=== PATIENT | female | born 1960 | race Caucasian/White ===

== ENCOUNTER 2017-08-18 14:30 | Inpatient (IN) | payer MEDICARE, OTHER ==
[~2017-08-18] VITALS: Ht 177.8 cm; Wt 82.6 kg
[2018-02-05] MEDS ORDERED: PARO40TA PO (12:23)
[2018-02-05] MEDS ORDERED: METO-482 PO (12:23)
[2018-04-30 15:03] VITALS: BP 183/94
[2018-04-30 15:35] LABS: APPEARANCE,URINE Clear (CLEAR); BILIRUBIN,URINE Small (NEGATIVE); COLOR,URINE Dark Yellow (YELLOW); GLUCOSE, URINE (UA) Negative (NEGATIVE); KETONES,URINE Trace mg/dL (NEGATIVE); LEUKOCYTE ESTERASE ,URINE Small (NEGATIVE); NITRATE,URINE Negative (NEGATIVE); OCCULT BLOOD,URINE Negative (NEGATIVE); PH,URINE 5.5 (5.0-8.0); PROTEIN,URINE POS 1+ (NEGATIVE)
[2018-04-30 15:49] LABS: BACTERIA,URINE Few /HPF (None Seen); RBC,URINE None Seen /HPF (0-1)
[2018-04-30] MEDS ORDERED: tylenol PO (16:20)
[2018-04-30] MEDS ORDERED: OXYC10TA58 PO (16:20)
[2018-04-30] MEDS ORDERED: OXCA300T46 PO (16:20)
[2018-05-03] VITALS (25 sets, daily range): BP systolic 116–179; BP diastolic 64–91
[2018-05-03] MEDS ORDERED: LACTATED RINGERS 1000ML 1,000 ML IV ONE (08:06)
[2018-05-03] MEDS ORDERED: TRANEXAMIC ACID 1000MG/10ML IV ONE (08:26)
[2018-05-03] MEDS ORDERED: CLINDAMYCIN PHOSPHATE 150 MG/ML 6ML VIAL ONE (08:26)
[2018-05-03] MEDS: CLINDAMYCIN 900 MG/D5% WATER 50 ML IV SCH ×2 (08:30→10:45)
[2018-05-03] MEDS ORDERED: METOCLOPRAMIDE 10 MG/2 ML VIAL ONE (08:32)
[2018-05-03] MEDS ORDERED: ACETAMINOPHEN EXTRA STRENGTH 500 MG TABLET ONE (08:33)
[2018-05-03] MEDS ORDERED: OXYCODONE HCL 10 MG TAB.SR.12H PO ONE (08:33)
[2018-05-03] MEDS ORDERED: KETOROLAC TROMETHAMINE 15MG/ML ONE (08:33)
[2018-05-03] MEDS: GENTAMICIN SULFATE 240 MG in SODIUM CHLORIDE 0.9% 100 ML IV SCH ×2 (08:55)
[2018-05-03] MEDS ORDERED: DEXAMETHASONE SOD PHOSPHATE 10MG/ML 1ML VIAL ONE (09:33)
[2018-05-03] MEDS ORDERED: LIDOCAINE PF 2% 5ML ABBOJECT ONE (09:33)
[2018-05-03] MEDS ORDERED: GLYCOPYRROLATE 0.2 MG/ML 5 ML VIAL ONE (09:33)
[2018-05-03] MEDS ORDERED: NEOSTIGMINE 5MG/5ML SYR IV ONE (09:33)
[2018-05-03] MEDS ORDERED: ONDANSETRON HCL 4 MG/2 ML VIAL ONE (09:33)
[2018-05-03] MEDS ORDERED: PROPOFOL 10 MG/ML 20ML VIAL IV ONE (09:35)
[2018-05-03] MEDS ORDERED: MIDAZOLAM HCL 1 MG/ML 2ML VIAL ONE (09:35)
[2018-05-03] MEDS ORDERED: FENTANYL CITRATE PF 50 MCG/1 ML 2ML VIAL ONE (09:35)
[2018-05-03] MEDS: SODIUM CHLORIDE 0.9% 1000ML 1,000 ML IV SCH (13:35)
[2018-05-03] MEDS ORDERED: KETOROLAC TROMETHAMINE 15MG/ML IV PRN (13:45)
[2018-05-03] MEDS: ACETAMINOPHEN EXTRA STRENGTH 500 MG TABLET PO SCH ×2 (13:45→19:59)
[2018-05-03] MEDS ORDERED: POTASSIUM CHLORIDE 10% ELIXIR 20 MEQ/15 ML UDCUP PO PRN (13:45)
[2018-05-03] MEDS ORDERED: CALCIUM CARBONATE 500 MG TABLET PO PRN (13:45)
[2018-05-03] MEDS ORDERED: FERROUS FUMARATE 324 MG TABLET PO PRN (13:45)
[2018-05-03] MEDS ORDERED: POTASSIUM CHLORIDE 20 MEQ ERTAB PO PRN (13:45)
[2018-05-03] MEDS ORDERED: POTASSIUM CHLORIDE 20MEQ/100ML 100 ML IV PRN (13:45)
[2018-05-03] MEDS ORDERED: LIDOCAINE HCL-MPF 1% 2ML VIAL IVP PRN (13:45)
[2018-05-03] MEDS ORDERED: OXYCODONE HCL 5 MG TAB PO PRN (13:45)
[2018-05-03] MEDS ORDERED: ONDANSETRON HCL 4 MG/2 ML VIAL IVP PRN (13:45)
[2018-05-03] MEDS ORDERED: TEMAZEPAM 15 MG CAPSULE PO PRN (13:45)
[2018-05-03] MEDS ORDERED: DiphenhydrAMINE HCL 50 MG/ML VIAL IVP PRN (13:45)
[2018-05-03] MEDS ORDERED: TRAMADOL HCL 50 MG TABLET PO PRN (13:45)
[2018-05-03] MEDS ORDERED: MEPERIDINE-PF 25 MG/ML SYG ONE (14:46)
[2018-05-03] MEDS ORDERED: HYDRALAZINE HCL 20 MG/ML VIAL ONE (14:52)
[2018-05-03] MEDS ORDERED: TYLENOL 500 MG PO PRN (16:00)
[2018-05-03] MEDS: CLINDAMYCIN 900 MG/D5% WATER 50 ML IVPB SCH (18:43)
[2018-05-03] MEDS: PREGABALIN 25 MG CAP PO SCH (19:59)
[2018-05-03] MEDS: FAMOTIDINE 20MG TAB 20 MG TAB PO SCH (19:59)
[2018-05-03] MEDS: OXCARBAZEPINE 300 MG TAB PO SCH (19:59)
[2018-05-03] MEDS: ASPIRIN 325 MG TABLET PO SCH (19:59)
[2018-05-03] MEDS: METOPROLOL TARTRATE 50 MG TAB PO SCH (19:59)
[2018-05-03] MEDS: OXYCODONE HCL 5 MG TAB PO PRN (20:10)
[2018-05-04 00:04] VITALS: BP 122/68
[2018-05-04] MEDS: CLINDAMYCIN 900 MG/D5% WATER 50 ML IVPB SCH (02:05)
[2018-05-04] MEDS: SODIUM CHLORIDE 0.9% 1000ML 1,000 ML IV SCH ×2 (02:05→09:37)
[2018-05-04 04:02] VITALS: BP 148/80
[2018-05-04 05:03] LABS: HEMATOCRIT 35.8 % (36-48); MEAN CORPUSCULAR HGB CONC 33.7 g/dL (32.0-36.0); MEAN CORPUSCULAR VOLUME 89.3 fL (79-99); PLATELET COUNT (AUTO) 334 K/uL (130-400); RED BLOOD CELL COUNT(AUTO) 4.01 MIL/uL (4.00-5.50); RED CELL DISTRIBUTION WIDTH 13.8 % (11.0-15.5); WHITE BLOOD COUNT (AUTO) 11.2 K/uL (4.8-10.8)
[2018-05-04 05:10] LABS: CREATININE 0.7 mg/dL (0.5-1.5); POTASSIUM 4.5 mmol/L (3.5-5.1)
[2018-05-04] MEDS: ACETAMINOPHEN EXTRA STRENGTH 500 MG TABLET PO SCH ×3 (05:26→21:20)
[2018-05-04 08:01] VITALS: BP 118/58
[2018-05-04] MEDS: PAROXETINE HCL 20 MG TABLET PO SCH (08:17)
[2018-05-04] MEDS: ASPIRIN 325 MG TABLET PO SCH ×2 (08:17→19:41)
[2018-05-04] MEDS: FAMOTIDINE 20MG TAB 20 MG TAB PO SCH ×2 (08:17→19:41)
[2018-05-04] MEDS: PREGABALIN 25 MG CAP PO SCH ×2 (08:17→19:41)
[2018-05-04] MEDS: POLYETHYLENE GLYCOL 3350 17 GM POWD.PACK PO SCH (08:18)
[2018-05-04] MEDS: METOPROLOL TARTRATE 50 MG TAB PO SCH ×2 (08:18→19:42)
[2018-05-04] MEDS: OXCARBAZEPINE 300 MG TAB PO SCH ×2 (08:18→19:41)
[2018-05-04] MEDS: OXYCODONE HCL 5 MG TAB PO PRN ×3 (08:19→22:32)
[2018-05-04] MEDS ORDERED: ACET-66 PO (09:34)
[2018-05-04] MEDS: ACETAMINOPHEN EXTRA STRENGTH 500 MG TABLET PO PRN ×2 (10:19→22:33)
[2018-05-04 12:22] VITALS: BP 140/63
[2018-05-04 16:37] VITALS: BP 158/82
[2018-05-04 20:04] VITALS: BP 147/80
[2018-05-05] VITALS (7 sets, daily range): BP systolic 102–156; BP diastolic 51–103
[2018-05-05] MEDS: ACETAMINOPHEN EXTRA STRENGTH 500 MG TABLET PO SCH ×2 (05:20→13:45)
[2018-05-05] MEDS: METOPROLOL TARTRATE 50 MG TAB PO SCH ×2 (09:00→19:54)
[2018-05-05] MEDS: PREGABALIN 25 MG CAP PO SCH ×2 (09:00→20:42)
[2018-05-05] MEDS: POLYETHYLENE GLYCOL 3350 17 GM POWD.PACK PO SCH (09:00)
[2018-05-05] MEDS: PAROXETINE HCL 20 MG TABLET PO SCH (09:00)
[2018-05-05] MEDS: OXCARBAZEPINE 300 MG TAB PO SCH ×2 (09:00→19:52)
[2018-05-05] MEDS: FAMOTIDINE 20MG TAB 20 MG TAB PO SCH ×2 (09:00→19:53)
[2018-05-05] MEDS: ASPIRIN 325 MG TABLET PO SCH ×2 (09:00→19:52)
[2018-05-05] MEDS: OXYCODONE HCL 5 MG TAB PO PRN (19:53)
[2018-05-05] MEDS: ACETAMINOPHEN EXTRA STRENGTH 500 MG TABLET PO PRN (19:53)
[2018-05-06] MEDS: OXYCODONE HCL 5 MG TAB PO PRN ×3 (00:16→10:24)
[2018-05-06] MEDS: ACETAMINOPHEN EXTRA STRENGTH 500 MG TABLET PO PRN ×2 (00:16→10:24)
[2018-05-06 03:00] VITALS: BP 128/69
[2018-05-06 08:02] VITALS: BP 155/79
[2018-05-06] MEDS ORDERED: PREG25 PO (08:06)
[2018-05-06] MEDS ORDERED: OXYC5 PO (08:06)
[2018-05-06] MEDS ORDERED: ASPI-1012 PO (08:06)
[2018-05-06] MEDS: PREGABALIN 25 MG CAP PO SCH (09:01)
[2018-05-06] MEDS: FAMOTIDINE 20MG TAB 20 MG TAB PO SCH (09:02)
[2018-05-06] MEDS: POLYETHYLENE GLYCOL 3350 17 GM POWD.PACK PO SCH (09:02)
[2018-05-06] MEDS: PAROXETINE HCL 20 MG TABLET PO SCH (09:02)
[2018-05-06] MEDS: METOPROLOL TARTRATE 50 MG TAB PO SCH (09:02)
[2018-05-06] MEDS: OXCARBAZEPINE 300 MG TAB PO SCH (09:02)
[2018-05-06] MEDS: ASPIRIN 325 MG TABLET PO SCH (09:02)
[2018-05-06] MEDS ORDERED: BISACODYL 10 MG SUPP.RECT RC PRN (13:45)
== END 2018-05-06 16:00 | DRG 470 ==
LOC: EDSTATUS 14:30 → DAHIP 05-03 08:00 → 4AH 05-03 14:44
PROVIDERS: ADMIT Orthopaedic Surgery; ATTEND Orthopaedic Surgery
PROC: 0SR901Z Replacement of Right Hip Joint with Metal Synthetic Substitute, Open Approach (ICD-10-PCS; principal; 2018-05-03 10:25)
DX: M16.11 Unilateral primary osteoarthritis, right hip (principal); N18.2 Chronic kidney disease, stage 2 (mild); I12.9 Hypertensive chronic kidney disease with stage 1 through stage 4 chronic kidney disease, or unspecified chronic kidney disease; F32.9 Major depressive disorder, single episode, unspecified; F41.9 Anxiety disorder, unspecified; G89.4 Chronic pain syndrome; Z83.3 Family history of diabetes mellitus; Z82.49 Family history of ischemic heart disease and other diseases of the circulatory system; Z85.841 Personal history of malignant neoplasm of brain
CPT/HCPCS: 36415; 73503; 80048; 81001; 85027; 88304; 88311; 96365; 96374; 96375; 97039; J0360; J1100; J1580; J1885; J2001; J2175; J2250; J2405; J2704; J2710; J2765; J3010; J3490; J7030; J7120

== ENCOUNTER 2018-02-08 11:12 | Observation (INO) | payer MEDICARE ==
[2018-02-05 11:53] VITALS: BP 167/85
[2018-02-05 12:02] LABS: BASOPHILS % (AUTO) 0.5 % (0.0-5.0); EOSINOPHILS % (AUTO) 2.6 % (0.0-8.0); HEMATOCRIT 42.4 % (36-48); MEAN CORPUSCULAR HEMOGLOBIN 30.5 pg (27.0-33.0); MEAN CORPUSCULAR HGB CONC 35.1 g/dL (32.0-36.0); MEAN CORPUSCULAR VOLUME 87.1 fL (79-99); MONOCYTES % (AUTO) 6.9 % (3.0-13.0); PLATELET COUNT (AUTO) 358 K/uL (130-400); RED BLOOD CELL COUNT(AUTO) 4.87 MIL/uL (4.00-5.50); RED CELL DISTRIBUTION WIDTH 13.5 % (11.0-15.5); WHITE BLOOD COUNT (AUTO) 8.7 K/uL (4.8-10.8)
[2018-02-05 12:08] LABS: CREATININE 0.8 mg/dL (0.5-1.5); POTASSIUM 3.5 mmol/L (3.5-5.1)
[2018-02-05] MEDS: CLINDAMYCIN 900 MG/D5% WATER 50 ML IV SCH (13:00)
[2018-02-08] VITALS (25 sets, daily range): BP systolic 112–184; BP diastolic 65–100
[~2018-02-08] VITALS: Ht 176.5 cm; Wt 85.1 kg
[~2018-02-08 11:12] MED LIST: ACET-2247 PO; METO-482 PO; OXYC10TA48 PO; PARO40TA PO
[2018-02-08] MEDS ORDERED: LACTATED RINGERS 1000ML 1,000 ML IV ONE (11:55)
[2018-02-08] MEDS ORDERED: BUPIVACAINE/PF 0.25% 30ML VIAL IJ ONE (13:16)
[2018-02-08] MEDS ORDERED: CLINDAMYCIN PHOSPHATE 150 MG/ML 6ML VIAL ONE ×2 (13:17→16:32)
[2018-02-08] MEDS ORDERED: MIDAZOLAM HCL 1 MG/ML 2ML VIAL ONE (13:26)
[2018-02-08] MEDS ORDERED: PROPOFOL 10 MG/ML 20ML VIAL IV ONE (13:26)
[2018-02-08] MEDS ORDERED: FENTANYL CITRATE PF 50 MCG/1 ML 5ML AMP IV ONE (13:26)
[2018-02-08] MEDS ORDERED: EPHEDRINE SULFATE 50 MG/ML AMPULE ONE (13:41)
[2018-02-08] MEDS: CLINDAMYCIN 900 MG/D5% WATER 50 ML IV SCH (13:47)
[2018-02-08] MEDS: BUPIVACAINE/EPI/PF 0.25% 30ML VIAL IJ ONE (17:30)
[2018-02-08] MEDS ORDERED: FENTANYL CITRATE PF 50 MCG/1 ML 2ML VIAL ONE ×2 (17:38→18:39)
[2018-02-08] MEDS ORDERED: TEMAZEPAM 15 MG CAPSULE PO PRN (18:00)
[2018-02-08] MEDS ORDERED: FERROUS FUMARATE 324 MG TABLET PO PRN (18:00)
[2018-02-08] MEDS ORDERED: CALCIUM CARBONATE 500 MG TABLET PO PRN (18:00)
[2018-02-08] MEDS ORDERED: DIPHENHYDRAMINE HCL 25 MG CAPSULE PO PRN (18:00)
[2018-02-08] MEDS ORDERED: PROMETHAZINE HCL 25 MG/ML 1ML AMPULE IM PRN (18:00)
[2018-02-08] MEDS ORDERED: DiphenhydrAMINE HCL 50 MG/ML VIAL IVP PRN (18:00)
[2018-02-08] MEDS ORDERED: MEPERIDINE-PF 25 MG/ML SYG ONE ×2 (18:19→18:29)
[2018-02-08] MEDS ORDERED: OXYCODONE HCL 20 MG TAB.SR.12H PO SCH (21:00)
[2018-02-08] MEDS ORDERED: ACETAMINOPHEN 325 MG TAB PO SCH (21:00)
[2018-02-08] MEDS: ASPIRIN 325 MG TABLET PO SCH (22:03)
[2018-02-09] MEDS: SODIUM CHLORIDE 0.9% 1000ML 1,000 ML IV SCH ×2 (00:01→13:30)
[2018-02-09] MEDS: METOPROLOL TARTRATE 50 MG TAB PO SCH ×2 (00:03→08:38)
[2018-02-09] MEDS: CLINDAMYCIN 900 MG/D5% WATER 50 ML IVPB SCH ×2 (00:04→06:20)
[2018-02-09] MEDS ORDERED: ACETAMINOPHEN 325 MG TAB ONE ×2 (00:30→13:27)
[2018-02-09] MEDS ORDERED: OXYCODONE HCL 10 MG TAB.SR.12H PO ONE (00:31)
[2018-02-09] MEDS: ACETAMINOPHEN 325 MG TAB PO PRN ×2 (00:35→13:23)
[2018-02-09 04:29] VITALS: BP 113/63
[2018-02-09 07:32] VITALS: BP 130/70
[2018-02-09] MEDS ORDERED: OXYCODONE HCL 5 MG TAB ONE ×2 (08:06→13:13)
[2018-02-09] MEDS: ASPIRIN 325 MG TABLET PO SCH (08:38)
[2018-02-09] MEDS: OXYCODONE HCL 5 MG TAB PO PRN ×2 (08:39→13:22)
[2018-02-09] MEDS ORDERED: OXYCODONE HCL 20 MG TAB.SR.12H PO SCH (09:00)
[2018-02-09] MEDS ORDERED: PAROXETINE HCL 20 MG TABLET PO SCH (09:00)
[2018-02-09] MEDS ORDERED: POLYETHYLENE GLYCOL 3350 17 GM POWD.PACK PO SCH (09:00)
[2018-02-09 11:03] VITALS: BP 108/54
[2018-02-09] MEDS ORDERED: PSYLLIUM SEED 1 EACH PACKET PO SCH (12:00)
[2018-02-10] MEDS ORDERED: BISACODYL 5 MG TABLET.DR PO PRN (18:00)
[2018-02-11] MEDS ORDERED: BISACODYL 10 MG SUPP.RECT RC PRN (18:00)
== END 2018-02-09 15:00 | disposition home or self-care (01) ==
LOC: DAH 11:12 → DAHIP 11:13 → 4AH 19:50
PROVIDERS: ADMIT Orthopaedic Surgery; ATTEND Orthopaedic Surgery
DX: S52.502P Unspecified fracture of the lower end of left radius, subsequent encounter for closed fracture with malunion (principal); G62.9 Polyneuropathy, unspecified; Z79.899 Other long term (current) drug therapy; F32.9 Major depressive disorder, single episode, unspecified; I10 Essential (primary) hypertension; I12.9 Hypertensive chronic kidney disease with stage 1 through stage 4 chronic kidney disease, or unspecified chronic kidney disease; N18.2 Chronic kidney disease, stage 2 (mild); Z85.841 Personal history of malignant neoplasm of brain; G89.4 Chronic pain syndrome; F41.9 Anxiety disorder, unspecified; X58.XXXD Exposure to other specified factors, subsequent encounter
CPT/HCPCS: 25405; 36415; 76000; 80048; 85025; 96365; 96375; A4649 ×3; A4930 ×3; A6223; C1713; C1776; G0378 ×28; J2175 ×2; J2250; J2704; J3010 ×3; J3490 ×5; J7030; J7120 ×2; Q4050; Q4051

== ENCOUNTER 2018-08-27 15:30 | Observation (INO) | payer MEDICARE ==
[~2018-08-27] VITALS: Ht 180.3 cm; Wt 87.5 kg
[~2018-08-27 15:30] MED LIST changes: -ACET-2247 PO; -OXYC10TA48 PO
[2018-08-27 15:32] VITALS: BP 195/103
[2018-08-27 15:32] LABS: BASOPHILS % (AUTO) 0.7 % (0.0-5.0); EOSINOPHILS % (AUTO) 4.6 % (0.0-8.0); HEMATOCRIT 38.6 % (36-48); LYMPHOCYTES % (AUTO) 30.1 % (21.0-51.0); MEAN CORPUSCULAR HEMOGLOBIN 29.6 pg (27.0-33.0); MEAN CORPUSCULAR VOLUME 87.1 fL (79-99); MONOCYTES % (AUTO) 6.9 % (3.0-13.0); NEUTROPHILS % (AUTO) 57.7 % (40.0-77.0); PLATELET COUNT (AUTO) 359 K/uL (130-400); RED BLOOD CELL COUNT(AUTO) 4.43 MIL/uL (4.00-5.50); RED CELL DISTRIBUTION WIDTH 14.7 % (11.0-15.5); WHITE BLOOD COUNT (AUTO) 7.3 K/uL (4.8-10.8)
[2018-08-27 15:37] LABS: CREATININE 0.8 mg/dL (0.5-1.5)
[2018-08-27] MEDS ORDERED: HYDR-4064 PO (16:31)
[2018-08-27 16:32] VITALS: BP 178/80
[2018-08-30] VITALS (23 sets, daily range): BP systolic 119–193; BP diastolic 60–101
[2018-08-30] MEDS ORDERED: VANCOMYCIN 1.5 GM in SODIUM CHLORIDE 0.9% 250 ML IV SCH (06:00)
[2018-08-30] MEDS ORDERED: LACTATED RINGERS 1000ML 1,000 ML IV ONE (07:56)
[2018-08-30] MEDS ORDERED: CLINDAMYCIN 900 MG/D5% WATER 50 ML IV ONE (07:57)
[2018-08-30] MEDS ORDERED: LIDOCAINE PF 2% 5ML ABBOJECT ONE (08:51)
[2018-08-30] MEDS ORDERED: ONDANSETRON HCL 4 MG/2 ML VIAL ONE ×2 (08:51→13:45)
[2018-08-30] MEDS ORDERED: PROPOFOL 10 MG/ML 20ML VIAL IV ONE ×2 (08:52→14:39)
[2018-08-30] MEDS ORDERED: FENTANYL CITRATE PF 50 MCG/1 ML 2ML VIAL ONE (08:52)
[2018-08-30] MEDS ORDERED: DEXAMETHASONE SOD PHOSPHATE 10MG/ML 1ML VIAL ONE (08:55)
[2018-08-30] MEDS ORDERED: MIDAZOLAM HCL 1 MG/ML 2ML VIAL ONE (08:55)
[2018-08-30] MEDS ORDERED: KETAMINE 50MG/ML SYRINGE 50 MG/ML DISP.SYRIN IV ONE (09:00)
[2018-08-30] MEDS ORDERED: HYDROMORPHONE 1 MG/1 ML AMP ONE ×2 (09:07→16:14)
[2018-08-30] MEDS ORDERED: EPHEDRINE SULFATE 50 MG/ML AMPULE ONE (10:56)
[2018-08-30] MEDS ORDERED: ROCURONIUM 10MG/1ML SYR 10 MG/ML ML ONE (11:01)
[2018-08-30] MEDS ORDERED: CLINDAMYCIN PHOSPHATE 150 MG/ML 6ML VIAL ONE ×2 (11:12→14:40)
[2018-08-30] MEDS ORDERED: BUPIVACAINE/EPI/PF 0.5% 30ML VIAL IJ ONE (11:12)
[2018-08-30] MEDS ORDERED: VASOPRESSIN 20 UNITS/ML 1ML VIAL ONE (11:39)
[2018-08-30] MEDS ORDERED: GLYCOPYRROLATE 1 MG/5 ML SYRINGE ONE (12:41)
[2018-08-30] MEDS ORDERED: NEOSTIGMINE 5MG/5ML SYR IV ONE (12:41)
[2018-08-30] MEDS ORDERED: ROPIVACAINE 0.5% 5MG/ML 30ML IJ ONE (15:09)
[2018-08-30] MEDS ORDERED: NALOXONE HCL 0.4 MG/1 ML ML IVP PRN (15:15)
[2018-08-30] MEDS ORDERED: FERROUS FUMARATE 324 MG TABLET PO PRN (15:15)
[2018-08-30] MEDS ORDERED: DIPHENHYDRAMINE HCL 25 MG CAPSULE PO PRN (15:15)
[2018-08-30] MEDS ORDERED: DiphenhydrAMINE HCL 50 MG/ML VIAL IVP PRN (15:15)
[2018-08-30] MEDS ORDERED: LIDOCAINE HCL-MPF 1% 2ML VIAL IVP PRN (15:15)
[2018-08-30] MEDS ORDERED: CALCIUM CARBONATE 500 MG TABLET PO PRN (15:15)
[2018-08-30] MEDS ORDERED: POTASSIUM CHLORIDE 10% ELIXIR 20 MEQ/15 ML UDCUP PO PRN (15:15)
[2018-08-30] MEDS ORDERED: HYDROMORPHONE PCA 10 MG/50 ML 50 ML IV PRN (15:15)
[2018-08-30] MEDS ORDERED: KETOROLAC TROMETHAMINE 30MG/ML IV PRN (15:15)
[2018-08-30] MEDS ORDERED: PROMETHAZINE HCL 25 MG/ML 1ML AMPULE IM PRN (15:15)
[2018-08-30] MEDS: ACETAMINOPHEN EXTRA STRENGTH 500 MG TABLET PO SCH (15:15)
[2018-08-30] MEDS ORDERED: TEMAZEPAM 15 MG CAPSULE PO PRN (15:15)
[2018-08-30] MEDS ORDERED: POTASSIUM CHLORIDE 20 MEQ ERTAB PO PRN (15:15)
[2018-08-30] MEDS ORDERED: POTASSIUM CHLORIDE 20MEQ/100ML 100 ML IV PRN (15:15)
[2018-08-30] MEDS ORDERED: HYDRALAZINE HCL 20 MG/ML VIAL ONE (15:49)
[2018-08-30] MEDS: CLINDAMYCIN 900 MG/D5% WATER 50 ML IVPB SCH (20:10)
[2018-08-30] MEDS: HYDROCODONE/ACETAMINOPHEN 7.5/325 MG TAB PO PRN (20:11)
[2018-08-30] MEDS: SODIUM CHLORIDE 0.9% 1000ML 1,000 ML IV SCH (20:11)
[2018-08-31] MEDS: ACETAMINOPHEN EXTRA STRENGTH 500 MG TABLET PO SCH ×3 (00:03→15:36)
[2018-08-31] MEDS: METOPROLOL TARTRATE 50 MG TAB PO SCH ×2 (00:03→04:05)
[2018-08-31] MEDS: SODIUM CHLORIDE 0.9% 1000ML 1,000 ML IV SCH (01:07)
[2018-08-31 03:25] VITALS: BP 188/100
[2018-08-31] MEDS: CLINDAMYCIN 900 MG/D5% WATER 50 ML IVPB SCH (04:04)
[2018-08-31 04:20] LABS: HEMATOCRIT 35.7 % (36-48); MEAN CORPUSCULAR HEMOGLOBIN 30.1 pg (27.0-33.0); MEAN CORPUSCULAR HGB CONC 34.6 g/dL (32.0-36.0); MEAN CORPUSCULAR VOLUME 86.8 fL (79-99); PLATELET COUNT (AUTO) 327 K/uL (130-400); RED BLOOD CELL COUNT(AUTO) 4.11 MIL/uL (4.00-5.50); WHITE BLOOD COUNT (AUTO) 9.2 K/uL (4.8-10.8)
[2018-08-31 04:30] LABS: CREATININE 0.8 mg/dL (0.5-1.5); POTASSIUM 3.9 mmol/L (3.5-5.1)
[2018-08-31] MEDS: HYDROCODONE/ACETAMINOPHEN 7.5/325 MG TAB PO PRN ×3 (05:19→19:14)
[2018-08-31 07:44] VITALS: BP 192/91
[2018-08-31] MEDS ORDERED: PAROXETINE HCL 20 MG TABLET PO SCH (09:00)
[2018-08-31] MEDS ORDERED: POLYETHYLENE GLYCOL 3350 17 GM POWD.PACK PO SCH (09:00)
[2018-08-31] MEDS ORDERED: ENOXAPARIN SODIUM 40 MG/0.4 ML SYRINGE SQ SCH (09:00)
[2018-08-31 11:36] VITALS: BP 179/93
[2018-08-31 16:19] VITALS: BP 159/85
[2018-08-31] MEDS ORDERED: HYDR-4064 PO (18:27)
== END 2018-08-31 19:45 | disposition home or self-care (01) ==
LOC: DAHIP 08-30 07:30 → EDSTATUS 08-30 15:30 → 4AH 08-30 16:37
PROVIDERS: ADMIT Orthopaedic Surgery; ATTEND Orthopaedic Surgery
DX: S52.502K Unspecified fracture of the lower end of left radius, subsequent encounter for closed fracture with nonunion (principal); G89.4 Chronic pain syndrome; M25.532 Pain in left wrist; F32.9 Major depressive disorder, single episode, unspecified; F41.9 Anxiety disorder, unspecified; I12.9 Hypertensive chronic kidney disease with stage 1 through stage 4 chronic kidney disease, or unspecified chronic kidney disease; N18.2 Chronic kidney disease, stage 2 (mild); M19.90 Unspecified osteoarthritis, unspecified site; Z87.891 Personal history of nicotine dependence; X58.XXXA Exposure to other specified factors, initial encounter; Y93.89 Activity, other specified; Y92.89 Other specified places as the place of occurrence of the external cause; Y99.8 Other external cause status
CPT/HCPCS: 25405; 36415 ×2; 76000; 80048 ×2; 85025; 85027; 96365; 96366; 96372; A4600; A4649 ×3; A4930; A6204; A6223; C1713 ×7; C1776; G0378 ×37; J0360; J1100; J1170 ×2; J1650; J2001; J2250; J2405 ×2; J2704 ×2; J2710; J2795; J3010; J3490 ×8; J7030; J7120; Q4051

== ENCOUNTER 2018-09-12 05:40 | Emergency (ER) | payer MEDICARE ==
[~2018-09-12 05:40] MED LIST changes: +HYDR-4064 PO
[2018-09-12 06:18] LABS: BASOPHILS % (AUTO) 1.2 % (0.0-5.0); EOSINOPHILS % (AUTO) 3.2 % (0.0-8.0); HEMATOCRIT 37.6 % (36-48); LYMPHOCYTES % (AUTO) 21.8 % (21.0-51.0); MEAN CORPUSCULAR HEMOGLOBIN 29.8 pg (27.0-33.0); MEAN CORPUSCULAR VOLUME 87.7 fL (79-99); MONOCYTES % (AUTO) 7.2 % (3.0-13.0); NEUTROPHILS % (AUTO) 66.6 % (40.0-77.0); NUCLEATED RED BLOOD CELLS 0.1 % (0.0-0.19); PLATELET COUNT (AUTO) 441 K/uL (130-400); RED BLOOD CELL COUNT(AUTO) 4.29 MIL/uL (4.00-5.50); RED CELL DISTRIBUTION WIDTH 15.1 % (11.0-15.5); WHITE BLOOD COUNT (AUTO) 10.8 K/uL (4.8-10.8)
[2018-09-12 06:23] LABS: POTASSIUM 3.1 mmol/L (3.5-5.1)
[2018-09-12 06:29] LABS: ALBUMIN 3.8 g/dL (3.5-5.0); BILIRUBIN,TOTAL 0.2 mg/dL (0.2-1.0); TOTAL PROTEIN, SERUM 7.6 g/dL (6.0-8.3)
[2018-09-12 08:00] LABS: APPEARANCE,URINE Cloudy (CLEAR); BILIRUBIN,URINE Negative (NEGATIVE); COLOR,URINE Dark Yellow (YELLOW); GLUCOSE, URINE (UA) Negative (NEGATIVE); KETONES,URINE Trace mg/dL (NEGATIVE); LEUKOCYTE ESTERASE ,URINE Trace (NEGATIVE); NITRATE,URINE Negative (NEGATIVE); OCCULT BLOOD,URINE Negative (NEGATIVE); PROTEIN,URINE POS 1+ (NEGATIVE)
[2018-09-12 08:22] LABS: BACTERIA,URINE Few /HPF (None Seen); RBC,URINE None Seen /HPF (0-1); SQUAMOUS EPITHELIAL CELL,UR Rare /HPF (0-2); WBC,URINE 0-1 /HPF (0-1)
[2018-09-12 08:23] LABS: CALCIUM OXALATE CRYSTALS,UR Moderate /LPF (None Seen)
[2018-09-12] MEDS ORDERED: SODIUM CHLORIDE 0.9% 1000ML 1,000 ML IV ONE (08:51)
[2018-09-12] MEDS ORDERED: KETOROLAC TROMETHAMINE 30MG/ML ONE (08:51)
== END 2018-09-12 12:10 | disposition home or self-care (01) ==
LOC: EDH 05:40
DX: M25.551 Pain in right hip (principal); I10 Essential (primary) hypertension; Z94.6 Bone transplant status; Z88.2 Allergy status to sulfonamides; Z88.1 Allergy status to other antibiotic agents; Z88.8 Allergy status to other drugs, medicaments and biological substances; Z72.0 Tobacco use
CPT/HCPCS: 36415; 74176; 80053; 81001; 85025; 96361; 96374; 99285; J1885; J7030

== ENCOUNTER 2018-09-13 04:06 | Emergency (ER) | payer MEDICARE ==
[2018-09-13] MEDS ORDERED: SUCRALFATE 1 GM TABLET ONE (05:12)
[2018-09-13] MEDS ORDERED: FAMOTIDINE/PF 20 MG/2 ML VIAL IV ONE (05:16)
[2018-09-13] MEDS ORDERED: DiphenhydrAMINE HCL 50 MG/ML VIAL ONE (05:25)
[2018-09-13 05:28] LABS: BASOPHILS % (AUTO) 0.6 % (0.0-5.0); HEMATOCRIT 33.7 % (36-48); LYMPHOCYTES % (AUTO) 12.2 % (21.0-51.0); MEAN CORPUSCULAR HEMOGLOBIN 30.2 pg (27.0-33.0); MEAN CORPUSCULAR HGB CONC 34.3 g/dL (32.0-36.0); MONOCYTES % (AUTO) 6.7 % (3.0-13.0); NEUTROPHILS % (AUTO) 78.5 % (40.0-77.0); NUCLEATED RED BLOOD CELLS 0.1 % (0.0-0.19); PLATELET COUNT (AUTO) 373 K/uL (130-400); RED BLOOD CELL COUNT(AUTO) 3.82 MIL/uL (4.00-5.50); RED CELL DISTRIBUTION WIDTH 14.4 % (11.0-15.5); WHITE BLOOD COUNT (AUTO) 10.9 K/uL (4.8-10.8)
[2018-09-13 05:35] LABS: CREATININE 1.7 mg/dL (0.5-1.5); POTASSIUM 3.3 mmol/L (3.5-5.1)
[2018-09-13 05:50] LABS: ALBUMIN 3.1 g/dL (3.5-5.0); BILIRUBIN,TOTAL 0.4 mg/dL (0.2-1.0); TOTAL PROTEIN, SERUM 6.4 g/dL (6.0-8.3)
[2018-09-13] MEDS ORDERED: PANTOPRAZOLE SODIUM 40 MG TABLET.DR PO ONE (06:20)
[2018-09-13] MEDS ORDERED: METOPROLOL TARTRATE 50 MG TAB ONE (06:20)
== END 2018-09-13 08:54 | disposition home or self-care (01) ==
LOC: EDH 04:06
DX: K21.0 Gastro-esophageal reflux disease with esophagitis (principal); L29.9 Pruritus, unspecified; F43.22 Adjustment disorder with anxiety; N28.9 Disorder of kidney and ureter, unspecified; I10 Essential (primary) hypertension; Z72.0 Tobacco use; Z88.2 Allergy status to sulfonamides; Z88.1 Allergy status to other antibiotic agents; Z88.8 Allergy status to other drugs, medicaments and biological substances
CPT/HCPCS: 36415; 71045; 80053; 82550 ×2; 84484 ×2; 85025; 93005 ×2; 96374; 96375; 99285; J1200; J3490

== ENCOUNTER 2018-10-29 09:09 | Day surgery (SDC) | payer MEDICARE ==
[~2018-10-29] VITALS: Ht 180.3 cm; Wt 80.3 kg
[2018-10-29] VITALS (17 sets, daily range): BP systolic 117–156; BP diastolic 60–85
[~2018-10-29 09:09] MED LIST changes: -HYDR-4064 PO; +TRAM1TAB PO
[2018-10-29] MEDS ORDERED: CLINDAMYCIN 900 MG/D5% WATER 50 ML IV ONE (10:53)
[2018-10-29] MEDS ORDERED: LACTATED RINGERS 1000ML 1,000 ML IV ONE (10:53)
[2018-10-29] MEDS ORDERED: ROPIVACAINE 0.5% 5MG/ML 30ML IJ ONE (10:59)
[2018-10-29] MEDS ORDERED: MIDAZOLAM HCL 1 MG/ML 2ML VIAL ONE (11:05)
[2018-10-29] MEDS ORDERED: PROPOFOL 10 MG/ML 20ML VIAL IV ONE ×2 (11:05→12:30)
[2018-10-29] MEDS ORDERED: ROCURONIUM 10MG/1ML SYR 10 MG/ML ML ONE (11:06)
[2018-10-29] MEDS ORDERED: FENTANYL CITRATE PF 50 MCG/1 ML 2ML VIAL ONE ×2 (11:06→15:06)
[2018-10-29] MEDS ORDERED: CLINDAMYCIN PHOSPHATE 150 MG/ML 6ML VIAL ONE (11:20)
--- NOTE | 2018-10-29 11:34 | NUR ---
[facility] pt has multiple sores all over body, Addendum: 10/29/18 at 1136 by BENJA NARVAEZ RN RN Amended: Links added.
[2018-10-29] MEDS: CLINDAMYCIN 900 MG/D5% WATER 50 ML IV SCH ×2 (11:35→11:37)
[2018-10-29] MEDS ORDERED: GLYCOPYRROLATE 1 MG/5 ML SYRINGE ONE (11:46)
[2018-10-29] MEDS ORDERED: EPHEDRINE SULFATE 50 MG/ML AMPULE ONE (11:58)
[2018-10-29] MEDS ORDERED: NEOSTIGMINE 5MG/5ML SYR IV ONE (13:07)
[2018-10-29] MEDS ORDERED: MEPERIDINE-PF 25 MG/ML SYG ONE (14:52)
[2018-10-29] MEDS ORDERED: HYDR-4457 PO (14:55)
[2018-10-29] MEDS ORDERED: CLIN300C3 PO (14:55)
== END 2018-10-29 18:14 | disposition home or self-care (01) ==
LOC: DAH 09:09
PROVIDERS: ATTEND Orthopaedic Surgery
DX: S56.212A Strain of other flexor muscle, fascia and tendon at forearm level, left arm, initial encounter (principal); T85.698A Other mechanical complication of other specified internal prosthetic devices, implants and grafts, initial encounter; X58.XXXA Exposure to other specified factors, initial encounter; Y93.9 Activity, unspecified; Y92.89 Other specified places as the place of occurrence of the external cause; Y99.9 Unspecified external cause status; F32.9 Major depressive disorder, single episode, unspecified; F41.9 Anxiety disorder, unspecified; M19.90 Unspecified osteoarthritis, unspecified site; G89.4 Chronic pain syndrome; Z98.890 Other specified postprocedural states; Z79.899 Other long term (current) drug therapy; Z88.8 Allergy status to other drugs, medicaments and biological substances; Z82.49 Family history of ischemic heart disease and other diseases of the circulatory system; Z83.3 Family history of diabetes mellitus; Z87.891 Personal history of nicotine dependence; I12.9 Hypertensive chronic kidney disease with stage 1 through stage 4 chronic kidney disease, or unspecified chronic kidney disease; N18.9 Chronic kidney disease, unspecified
CPT/HCPCS: 20680; 26370; 76000; 88300; A4649; A4930; A6223; G0168; J2175; J2250; J2704 ×2; J2710; J2795; J3010 ×2; J3490 ×3; J7120 ×2

== ENCOUNTER → 2018-12-28 | Outpatient (CLI) | payer OTHER ==
[~2018-12-28] MED LIST changes: +CLIN300C3 PO; +HYDR-4457 PO; -TRAM1TAB PO
== END | disposition home or self-care (01) ==
LOC: RAH 14:15
PROVIDERS: ATTEND Orthopaedic Surgery
DX: S52.532P Colles' fracture of left radius, subsequent encounter for closed fracture with malunion (principal); X58.XXXD Exposure to other specified factors, subsequent encounter; Y93.89 Activity, other specified; Y92.89 Other specified places as the place of occurrence of the external cause; Y99.8 Other external cause status
CPT/HCPCS: 73200